=== PATIENT | female | born 1980 | race Caucasian/White ===

== ENCOUNTER 2019-05-04 15:30 | Emergency (ER) | payer SELFPAY ==
[~2019-05-04] VITALS: Ht 170.2 cm; Wt 86.2 kg
[2019-05-04 15:32] VITALS: BP 112/67
--- NOTE | 2019-05-04 15:36 | NUR ---
PT TRIAGED ON [facility]. TAKEN TO LOBBY VIA W/C TO WAIT FOR AVAILABLE BED.
--- NOTE | 2019-05-04 16:55 | NUR ---
PT AMBULATED TO BED 08.
--- NOTE | 2019-05-04 17:00 | NUR ---
biba c/o right toe pain, pt has hx of neuropathy, takes gabapentin. BLISTER NOTED TO RIGHT TOE AND SKIN IS EDEMATOUS. hx neuropathy. DENIES N/V/D; SKIN IS PINK/WARM/DRY; AAOX4 ,LUNGS CLEAR BL; HR EVEN AND REGULAR; PT DENIES ANY FEVER, CP, SOB, OR COUGH AT THIS TIME; PATIENT STATES PAIN OF 8/10 AT THIS TIME; VSS; PATIENT POSITIONED FOR COMFORT; HOB ELEVATED; BEDRAILS UP X2; BED DOWN. ER MD MADE AWARE OF PT STATUS.
[2019-05-04] MEDS ORDERED: cefTRIAXone 1,000 MG in LIDOCAINE MPF 1% 2.1 ML IM ONE (17:10)
[2019-05-04] MEDS ORDERED: ONDANSETRON 4 MG ODT PO ONE (17:10)
[2019-05-04] MEDS ORDERED: KETOROLAC 30 MG/ML VIAL IM ONE (17:10)
[2019-05-04] MEDS ORDERED: GABAPENTIN 300 MG CAP PO ONE (17:10)
[2019-05-04] MEDS ORDERED: HYDROcodone/APAP 5/325 MG 1 TAB TAB PO ONE (17:10)
--- NOTE | 2019-05-04 17:21 | NUR ---
CALLED PHARMACY FOR 300MG GABAPENTIN, THEY WILL BRING IT OVER
[2019-05-04 19:01] VITALS: BP 115/67
--- NOTE | 2019-05-04 19:02 | NUR ---
Patient discharged with v/s stable. Written and verbal after care instructions given and explained. Patient alert, oriented and verbalized understanding of instructions. Wheel Chair Assisted with to LOBBY. All questions addressed prior to discharge. ID band removed. Patient advised to follow up with PMD. Rx of BACTRIUM AND GABAPENTIN given. Patient educated on indication of medication including possible reaction and side effects. Opportunity to ask questions provided and answered. PT WILL STAY IN LOBBY TO WAIT FOR HER MOM TO GIVE HER A RIDE.
== END 2019-05-04 19:02 | disposition home or self-care (01) ==
LOC: MED 15:30
DX: L03.031 Cellulitis of right toe (principal); G62.89 Other specified polyneuropathies; Z98.890 Other specified postprocedural states
CPT/HCPCS: 96372; 99284; J0696; J1885; J2001; Q0162